=== PATIENT | male | born 1955 | race Caucasian/White ===

== ENCOUNTER 2019-05-04 15:31 | Emergency (ER) | payer BC ==
--- NOTE | 2019-05-04 16:08 | EDM.PDOC ---
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 Had no other complaints through the day although he felt a little tightness in his chest. Says he feels just kind of funny overall he states he went in and had lunch and took a nap today at dinner with no issues got back up went back to work then at 3:00 today while sweeping out the grain bin he passed back out for maybe a few seconds following over a broom and at that time his son brought him to the hospital. Says he feels fine overall may be a little tightness under the ribs but he denies any other complaints. Says he feels fine overall but wanted to get checked out Had a treadmill stress test nuke stress test about 15 years ago which was negative has a history of hyperlipidemia takes Lipitor daily and Flomax for BPH Had 4 5 cups of coffee a little water today and plenty of food Onset: Sudden Duration: Hour(s): Location: Reports: Head, Upper Extremity, Left Quality: Reports: Other (He denies any pain to the area of his head or his knee where he has superficial abrasions on both) Improves with: Reports: None Worsens with: Reports: None - Related Data Allergies Allergy/AdvReac Type Severity Reaction Status Date / Time Sulfa (Sulfonamide Allergy Other Verified 05/04/19 18:10 Antibiotics) Home Meds: Home Meds Fluticasone Propionate [Flovent HFA 110 MCG] 2 puff INH DAILY PRN 05/04/19 [ History] Tamsulosin HCl 0.4 mg PO DAILY 05/04/19 [History] atorvaSTATin Calcium [Atorvastatin Calcium] 80 mg PO DAILY 05/04/19 [History] ED ROS GENERAL - Review of Systems Review Of Systems: See Below Constitutional: Reports: No Symptoms, Diaphoresis. Denies: Fever, Chills, Malaise, Weakness, Fatigue, Night Sweats, Decreased Appetite, Weight Loss, Weight Gain HEENT: Reports: No Symptoms. Denies: Vertigo, Vision Change Respiratory: Reports: Pleuritic Chest Pain. Denies: Shortness of Breath, Wheezing, Cough, Sputum, Hemoptysis Cardiovascular: Reports: Lightheadedness, Syncope. Denies: Chest Pain, Blood Pressure Problem, Claudication, Dyspnea on Exertion, Edema, Orthopnea, Palpitations, PND Endocrine: Reports: No Symptoms GI/Abdominal: Reports: No Symptoms : Reports: No Symptoms Musculoskeletal: Reports: No Symptoms Skin: Reports: No Symptoms Neurological: Reports: Syncope. Denies: Confusion, Dizziness, Headache, Numbness, Paresthesia, Pre-Existing Deficit, Seizure, Tingling, Tremors, Trouble Speaking, Difficulty Walking, Weakness Psychiatric: Reports: No Symptoms Hematologic/Lymphatic: Reports: No Symptoms Immunologic: Reports: No Symptoms - Physical Exam Exam: See Below Exam Limited By: No Limitations General Appearance: Alert, WD/WN, No Apparent Distress Ears: Normal External Exam, Normal Canal, Hearing Grossly Normal, Normal TMs Nose: Normal Inspection, Normal Mucosa Throat/Mouth: Normal Inspection, Normal Lips, Normal Teeth, Normal Gums, Normal Oropharynx, Normal Voice, No Airway Compromise Head Exam: Atraumatic, Normocephalic, Other (Superficial abrasion to the left side of the forehead approximately size of a nickel). No: Scalp Tenderness, Facial Abrasions, Facial Ecchymosis, Facial Lacerations, Facial Swelling, Facial Tenderness, Sinus Tenderness Neck: Normal Inspection, Supple, Non-Tender, Full Range of Motion, Carotid Bruit , Other (Questionable mild left carotid bruit) Respiratory/Chest: No Respiratory Distress, Lungs Clear, Normal Breath Sounds, No Accessory Muscle Use, Chest Non-Tender Cardiovascular: Normal Peripheral Pulses, Regular Rate, Rhythm, No Edema, No Gallop, No JVD, No Murmur, No Rub GI/Abdominal: Normal Bowel Sounds, Soft, Non-Tender, No Organomegaly, No Distention. No: Guarding, Rigid, Rebound, Tender Neuro Exam (Abbreviated): Alert, Oriented, CN II-XII Intact, Normal Cognition, Normal Gait, Normal Reflexes, No Motor/Sensory Deficits Back Exam: Normal Inspection, Full Range of Motion Extremities: Normal Inspection, Normal Range of Motion, Non-Tender, No Pedal Edema, Normal Capillary Refill, Other (5 of 5 upper extremity lower extremity bilateral) Psychiatric: Normal Affect, Normal Mood Skin Exam: Warm, Dry, Intact, Normal Color, No Rash Course - Vital Signs Text/Narrative:: CBC BMP troponin EKG chest x-ray CT head Lab work chest x-ray CT head all negative Spoke with Dr. Prosper Barriga in regards to placing the patient in under observation or admission secondary to work-up with cardiac echo/carotid ultrasound he states that they do not do cardiac echo was here in the carotids can be done outpatient. He does not believe the patient meets any criteria for admission or observation he is willing to get a 3-hour troponin and if negative he can follow-up with Pr[facility] as an outpatient Spoke with the patient in regards to further testing admit in observation patient at this time does not want to stay he wants to go home discussed risk versus benefit patient still wants to go home but is willing to stay for 3-hour troponin 1830 EKG was sent to Dr. Steiner cardiology at [place] says he sees no acute findings he agrees patient can be seen outpatient if he wishes after a second troponin for further work-up or he could be admitted for observation discharged in the morning if need be 1st 0.054 2nd trop 0.086 pt with no cp feels fine repeat ekg asa 325mg Dr. Steiner will consult start heprin with drip and bolus [facility] will accept transfer to [place] Last Recorded V/S: Last Vital Signs Temp 37.6 C 05/04/19 15:40 Pulse 105 H 05/04/19 15:40 Resp 16 05/04/19 15:40 BP 119/79 05/04/19 15:40 Pulse Ox 97 05/04/19 15:40 - Orders/Labs/Meds Orders: Active Orders 24 hr Category Date Time Status EKG 12 Lead [EKG Documentation Completion] [RC] URGENT Care 05/04/19 16:18 Active Labs: Laboratory Tests 05/04/19 05/04/19 05/04/19 Range/Units 16:12 16:12 19:40 WBC 7.7 (4.0-10.0) x10^3/uL RBC 4.82 (4.5-6.0) x10^6/uL Hgb 15.4 (14.0-18.0) g/dL Hct 43.8 (40.0-52.0) % MCV 90.9 (78.0-93.0) fL MCH 32.0 (26.0-32.0) pg MCHC 35.2 (32.0-36.0) g/dL RDW Coeff of Sendy 12.3 (10.0-15.0) % Plt Count 230 (130-400) x10^3/uL Neut % (Auto) 65.2 (50.0-80.0) % Lymph % (Auto) 23.0 L (25.0-50.0) % Becker % (Auto) 9.7 (2.0-11.0) % Eos % (Auto) 1.6 (0.0-4.0) % Baso % (Auto) 0.5 (0.2-1.2) % Sodium 141 (136-145) mmol/L Potassium 4.6 (3.5-5.1) mmol/L Chloride 103 (98-107) mmol/L Carbon Dioxide 27 (21-32) mmol/L Anion Gap 15.6 (10-20) mmol/L BUN 18 (7-18) mg/dL Creatinine 1.2 (0.70-1.30) mg/dL Est Cr Clr Drug Dosing TNP Estimated GFR (MDRD) > 60 Glucose 127 H (74-106) mg/dL Calcium 8.8 (8.5-10.1) mg/dL Troponin I 0.054 0.086 H* (<=0.056) ng/mL Departure - Departure Time of Disposition: 20:20 Disposition: DC/Tfer to Other 70 Condition: Good Clinical Impression: Syncopal episodes, ACS (acute coronary syndrome) Clinical Impression: (Ruled Out): NSTEMI (non-ST elevated myocardial infarction) - Discharge Information Referrals: Ke Ayala NP [Primary Care Provider] - Forms: ED Department Discharge, Interfacility Transfer EMTALA Sepsis Event Note - Focused Exam Vital Signs: Vital Signs Temp Pulse Resp BP Pulse Ox 05/04/19 15:40 37.6 C 105 H 16 119/79 97 Date Exam was Performed: 05/04/19 Time Exam was Performed: 20:32 - Problem List & Annotations (1) NSTEMI (non-ST elevated myocardial infarction) Code(s): I21.4 - NON-ST ELEVATION (NSTEMI) MYOCARDIAL INFARCTION Status: Acute Current Visit: Yes (2) Syncopal episodes SNOMED Code(s): 214982199 Code(s): R55 - SYNCOPE AND COLLAPSE Status: Acute Current Visit: Yes (3) ACS (acute coronary syndrome) SNOMED Code(s): 487107451 Code(s): I24.9 - ACUTE ISCHEMIC HEART DISEASE, UNSPECIFIED Status: Acute Current Visit: Yes - My Orders Last 24 Hours: My Active Orders 05/04/19 16:18 EKG 12 Lead [EKG Documentation Completion] [RC] URGENT - Assessment/Plan Last 24 Hours: My Active Orders 05/04/19 16:18 EKG 12 Lead [EKG Documentation Completion] [RC] URGENT
[2019-05-04 16:40] LABS: CHLORIDE,CL 103 mmol/L (98-107); SODIUM,NA 141 mmol/L (136-145)
[2019-05-04 16:41] LABS: ANION GAP 15.6 mmol/L (10-20)
--- NOTE | 2019-05-04 17:14 | CT ---
[id number] CT/CT Head WO IV EXAM: CT Head WO IV CLINICAL DATA: SYNCOPE COMPARISON: NO PREVIOUS SIMILAR EXAM IS AVAILABLE FOR COMPARISON. FINDINGS: There is no mass or mass effect. There is no hemorrhage or hydrocephalus. There are no extra-axial fluid collections. There are no sites of abnormal attenuation. IMPRESSION: NO PLAIN CT EVIDENCE OF ACUTE INTRACRANIAL PROCESS. Jadon Lopez MD 05/04/19 [id number] Thank you for allowing us to participate in the care of your patient.
[2019-05-04] MEDS: Aspirin 81 MG Tab.Chew PO ONE (20:40)
[2019-05-04] MEDS: Heparin Sodium 5,000 Units/ML Vial ONE (20:45)
[2019-05-04] MEDS: Heparin Sodium 5,000 Units/ML Vial IVPUSH ONE (20:45)
[2019-05-04] MEDS ORDERED: Heparin Sodium/0.45% NaCl 500 ML ONE (20:47)
[2019-05-04] MEDS: Clopidogrel 75 MG Tab PO ONE (21:10)
[2019-05-04] MEDS: Clopidogrel 75 MG Tab ONE (21:10)
== END 2019-05-04 21:15 | disposition other institution (70) ==
LOC: VM.ED 15:31
DX: I24.9 Acute ischemic heart disease, unspecified (principal); R55 Syncope and collapse; Z88.2 Allergy status to sulfonamides
CPT/HCPCS: 36415; 70450; 80048; 84484; 85025; 85610; 85730; 93005; 96374; 99285; A9270; J1644

== ENCOUNTER 2020-05-28 21:48 | Emergency (ER) | payer MEDICARE, BC ==
--- NOTE | 2020-05-28 23:02 | EDM.PDOC ---
ED HPI GENERAL MEDICAL PROBLEM - General Stated Complaint: LEG WEAKNESS Time Seen by Provider: 05/28/20 22:00 Source of Information: Reports: Patient, Family History Limitations: Reports: No Limitations - History of Present Illness INITIAL COMMENTS - FREE TEXT/NARRATIVE: Pt. presents to ER with concerns of blood clot in L leg. Pt. states that he was sitting on a walker today with his legs crossed for over an hour. When he got up, he noticed some paresthesia and decreased strength in his L leg and foot. He states that he also had problems with dorsiflexion of the L foot. Pt. also thought that the extremity felt cooler than the L. Overall he states that the symptoms are improving somewhat. He is currently anticoagulated with coumadin (mechanical heart valve replacement recently). He has had a series of unfortunate medical problems this winter, including the valve replacement, CABG and cardiac arrest with extended stay at [facility]. Pt. last INR was therapeutic at 2.2. Pt. denies any chest pain, increased shortness of breath, or lightheadedness. He also denies any numbness/tingling in his upper extremities. No problems with speech/ambulation/facial droop. Pt. states that he is also experiencing some rash since starting proscar for BPH. He states that he has stopped taking the medication. Denies any throat tightness or wheezing. Onset: Today Onset Date: 05/28/20 Location: Reports: Lower Extremity, Left Quality: Reports: Ache - Related Data Allergies Allergy/AdvReac Type Severity Reaction Status Date / Time Sulfa (Sulfonamide Allergy Other Verified 05/04/19 18:10 Antibiotics) Home Meds: Home Meds Fluticasone Propionate [Flovent HFA 110 MCG] 2 puff INH DAILY PRN 05/04/19 [History] Tamsulosin HCl 0.4 mg PO BEDTIME 05/04/19 [History] atorvaSTATin Calcium [Atorvastatin Calcium] 80 mg PO DAILY 05/04/19 [History] Albuterol Sulfate [Albuterol Sulfate Hfa] 2 puff IH ASDIRECTED PRN 06/08/19 [History] Aspirin [Halfprin] 81 mg PO DAILY 06/08/19 [History] Clopidogrel [Plavix] 75 mg PO DAILY 06/08/19 [History] Metoprolol Tartrate [Lopressor] 12.5 mg PO Q12HR 06/08/19 [History] Multivitamin [Multi-Vitamin Daily] 1 each PO DAILY 06/08/19 [History] Nitroglycerin [Nitrostat] 0.4 mg SL ASDIRECTED PRN 06/08/19 [History] Past Medical History Respiratory History: Reports: Other (See Below) Other Respiratory History: exercise induced asthma Musculoskeletal History: Reports: Other (See Below) Other Musculoskeletal History: hematoma L hip - Past Surgical History GI Surgical History: Reports: Appendectomy Male Surgical History: Reports: Other (See Below) Other Male Surgeries/Procedures: cyst on testicle removed ED ROS GENERAL - Review of Systems Review Of Systems: Comprehensive ROS is negative, except as noted in HPI. ED EXAM, GENERAL - Physical Exam Exam: See Below Exam Limited By: No Limitations General Appearance: Alert, WD/WN, No Apparent Distress Head: Atraumatic, Normocephalic Respiratory/Chest: No Respiratory Distress, Lungs Clear, Normal Breath Sounds, No Accessory Muscle Use, Chest Non-Tender Cardiovascular: Normal Peripheral Pulses, Regular Rate, Rhythm, No Edema, No JVD, Other (mechanical valve) Extremities: Normal Inspection, Other (tenderness behind L knee. No duskiness. temperature of the extremity is equal bilaterally. Elke sign is negative.) Skin Exam: Rash (Rash noted to torso.) Course - Orders/Labs/Meds Labs: Laboratory Tests 05/28/20 Range/Units 22:30 PT 24.0 H (9.9-12.5) SEC INR 2.2 (2.0-3.5) Departure - Departure Time of Disposition: 23:08 Disposition: Home, Self-Care 01 Clinical Impression: Neuropathy - Discharge Information Referrals: Rossy Barriga DO [Primary Care Provider] - Additional Instructions: This appears to be a nerve issue that will hopefully resolve in a few days. Your INR is theraputic, so I am not concerned about a DVT (blood clot) Follow-up in the clinic in 5-7 days, sooner of not gradually improving. I would discuss this with physical therapy tomorrow to see if there are some exercises you can do. Regarding your rash, continue with topical benadryl as needed. We will hold off on any steroids at this point since you aren't having any other symptoms. - Assessment/Plan Plan: This appears to be a nerve issue that will hopefully resolve in a few days. Your INR is theraputic, so I am not concerned about a DVT (blood clot) Follow-up in the clinic in 5-7 days, sooner of not gradually improving. I would discuss this with physical therapy tomorrow to see if there are some exercises you can do. Regarding your rash, continue with topical benadryl as needed. We will hold off on any steroids at this point since you aren't having any other symptoms.
== END 2020-05-28 23:02 | disposition home or self-care (01) ==
LOC: VM.ED 21:48
DX: G62.9 Polyneuropathy, unspecified (principal); R21 Rash and other nonspecific skin eruption; Z88.2 Allergy status to sulfonamides; Z79.82 Long term (current) use of aspirin; Z79.02 Long term (current) use of antithrombotics/antiplatelets; Z79.899 Other long term (current) drug therapy; Z79.01 Long term (current) use of anticoagulants; R06.02 Shortness of breath
CPT/HCPCS: 36415; 85610; 99284

== ENCOUNTER 2020-12-05 09:17 | Emergency (ER) | payer MEDICARE, BC ==
[2020-12-05 10:22] LABS: CHLORIDE,CL 104 mmol/L (98-107); SODIUM,NA 137 mmol/L (136-145)
[2020-12-05 10:23] LABS: ANION GAP 11.4 mmol/L (5-15)
[2020-12-05 10:27] LABS: PTT,PARTIAL THROMBOPLSTIN TIME 38.1 SEC (25.6-32.8)
--- NOTE | 2020-12-05 13:39 | EDM.PDOC ---
ED HPI GENERAL MEDICAL PROBLEM - General Chief Complaint: Chest Pain Stated Complaint: SOB DIZZY Time Seen by Provider: 12/05/20 09:20 Source of Information: Reports: Patient - History of Present Illness INITIAL COMMENTS - FREE TEXT/NARRATIVE: See computer chart secondary computer was down at initial presentation - Related Data Allergies Allergy/AdvReac Type Severity Reaction Status Date / Time Sulfa (Sulfonamide Allergy Other Verified 05/29/20 00:55 Antibiotics) Home Meds: Home Meds Fluticasone Propionate [Flovent HFA 110 MCG] 2 puff INH BID PRN 05/04/19 [History] Tamsulosin HCl 0.4 mg PO BEDTIME 05/04/19 [History] Albuterol Sulfate [Albuterol Sulfate Hfa] 2 puff IH ASDIRECTED PRN 06/08/19 [History] Multivitamin [Multi-Vitamin Daily] 1 each PO DAILY 06/08/19 [History] Warfarin [Coumadin] 5 mg PO DAILY 05/29/20 [History] Iron Polysaccharides Complex [Ferrex 150] 150 mg PO DAILY 06/18/20 [History] Aspirin [Aspirin EC] 81 mg PO DAILY 06/21/20 [History] Calcium Citrate/Vitamin D2 [Donald-Citrate Plus Vitamin D Tab] 1 tab PO BID 06/21/20 [History] Cholecalciferol (Vitamin D3) [Vitamin D3] 50 mcg PO DAILY 06/21/20 [History] Cyanocobalamin (Vitamin B-12) [Vitamin B-12] 1 tab PO DAILY 06/21/20 [History] Digoxin [Digox] 0.125 mg PO DAILY 06/21/20 [History] Docusate Sodium 100 mg PO BID 06/21/20 [History] Rosuvastatin Calcium [Crestor] 40 mg PO DAILY 06/21/20 [History] Saw [place] 1,000 mg PO DAILY 06/21/20 [History] Past Medical History Cardiovascular History: Reports: Bypass, CAD, High Cholesterol, Hypertension, Prior Cardiac Arrest, Stents Respiratory History: Reports: Other (See Below) Other Respiratory History: exercise induced asthma Genitourinary History: Reports: Prostate Disorder Musculoskeletal History: Reports: Other (See Below) Other Musculoskeletal History: hematoma L hip - Past Surgical History GI Surgical History: Reports: Appendectomy Male Surgical History: Reports: Other (See Below) Other Male Surgeries/Procedures: cyst on testicle removed ED ROS GENERAL - Review of Systems Review Of Systems: See Below Reason Not Obtained: See paper chart ED EXAM, GENERAL - Physical Exam Exam: See Below Free Text/Narrative:: See paper chart Course - Vital Signs Text/Narrative:: CBC BMP troponin x2 EKG chest x-ray Chest x-ray atelectasis noted Lab work within normal limits first troponin was 9-second troponin was 11 still within normal standards EKG normal sinus rhythm no acute findings paced Spoke with primary care provider Rossy states she is okay with patient being discharged home and seeing him outpatient on Thursday having call the clinic for a time Spoke with the patient he is okay with being discharged home in course of treatment disposition and follow-up outpatient Chest x-ray per radiology Minor right base atelectasis and/or infiltrates with patient normal white count normal vital signs no cough probable not infiltrates we will have patient follow-up with primary care provider for rajni-ray in 24 to 48 hours - Orders/Labs/Meds Orders: Active Orders 24 hr Category Date Time Status Chest 1V Frontal [CR] Routine Exams 12/05/20 Ordered Labs: Laboratory Tests 12/05/20 12/05/20 12/05/20 Range/Units 09:37 09:37 09:37 WBC 5.4 (4.0-10.0) x10^3/uL RBC 4.25 L (4.5-6.0) x10^6/uL Hgb 13.5 L (14.0-18.0) g/dL Hct 38.8 L (40.0-52.0) % MCV 91.3 (78.0-93.0) fL MCH 31.8 (26.0-32.0) pg MCHC 34.8 (32.0-36.0) g/dL RDW Coeff of Sendy 12.6 (10.0-15.0) % Plt Count 195 (130-400) x10^3/uL PT 36.1 H D (9.9-12.5) SEC INR 3.3 (2.0-3.5) APTT 38.1 H (25.6-32.8) SEC Sodium 137 (136-145) mmol/L Potassium 4.4 (3.5-5.1) mmol/L Chloride 104 (98-107) mmol/L Carbon Dioxide 26 (21-32) mmol/L Anion Gap 11.4 (5-15) mmol/L BUN 15 (7-18) mg/dL Creatinine 1.2 (0.70-1.30) mg/dL Est Cr Clr Drug Dosing TNP Estimated GFR (MDRD) > 60 Glucose 119 H (70-99) mg/dL Calcium 8.9 (8.5-10.1) mg/dL Troponin I High Sens 9 (<=76) ng/L 12/05/20 Range/Units 12:35 WBC (4.0-10.0) x10^3/uL RBC (4.5-6.0) x10^6/uL Hgb (14.0-18.0) g/dL Hct (40.0-52.0) % MCV (78.0-93.0) fL MCH (26.0-32.0) pg MCHC (32.0-36.0) g/dL RDW Coeff of Sendy (10.0-15.0) % Plt Count (130-400) x10^3/uL PT (9.9-12.5) SEC INR (2.0-3.5) APTT (25.6-32.8) SEC Sodium (136-145) mmol/L Potassium (3.5-5.1) mmol/L Chloride (98-107) mmol/L Carbon Dioxide (21-32) mmol/L Anion Gap (5-15) mmol/L BUN (7-18) mg/dL Creatinine (0.70-1.30) mg/dL Est Cr Clr Drug Dosing Estimated GFR (MDRD) Glucose (70-99) mg/dL Calcium (8.5-10.1) mg/dL Troponin I High Sens 11 (<=76) ng/L Departure - Departure Time of Disposition: 13:30 Disposition: Home, Self-Care 01 Condition: Good Clinical Impression: Chest pain Instructions: Nonspecific Chest Pain, Adult Referrals: Rossy Barriga DO [Primary Care Provider] - Forms: ED Department Discharge Additional Instructions: Call your primary care provider Rossy for an appointment Thursday call the clinic for the appointment time Take all medications as directed Return here to the emergency room if anything changes or gets worse - Problem List & Annotations (1) Chest pain SNOMED Code(s): 14923816 Code(s): R07.9 - CHEST PAIN, UNSPECIFIED Status: Acute Current Visit: Yes - Problem List Review Problem List Initiated/Reviewed/Updated: Yes - My Orders Last 24 Hours: My Active Orders 12/05/20 Chest 1V Frontal [CR] Routine - Assessment/Plan Last 24 Hours: My Active Orders 12/05/20 Chest 1V Frontal [CR] Routine
== END 2020-12-05 11:40 | disposition home or self-care (01) ==
LOC: VM.ED 09:17
DX: R07.2 Precordial pain (principal); R07.89 Other chest pain; I25.10 Atherosclerotic heart disease of native coronary artery without angina pectoris; E78.00 Pure hypercholesterolemia, unspecified; I10 Essential (primary) hypertension; Z95.5 Presence of coronary angioplasty implant and graft; Z88.2 Allergy status to sulfonamides; Z79.01 Long term (current) use of anticoagulants; Z79.82 Long term (current) use of aspirin; Z79.899 Other long term (current) drug therapy
CPT/HCPCS: 36415; 71045; 80048; 84484; 85027; 85610; 85730; 93005; 99284; 99285-25